=== PATIENT | male | born 1965 | race Caucasian/White ===

== ENCOUNTER 2017-10-10 16:02 | Emergency (ER) | payer OTHER ==
[2017-10-10 16:07] VITALS: BP 144/82; PULSE 123; BMI 28.3
[2017-10-10 16:33] VITALS: TEMP 98.3
[2017-10-10] MEDS ORDERED: IBUPROFEN 600 MG TABLET (FP) PO ONE ×2 (17:05→17:08)
--- NOTE | 2017-10-10 17:26 | PDOC ---
History of Present Illness - General Chief Complaint: Respiratory Stated Complaint: COLD SYMPTOMS Time Seen by Provider: 10/10/17 16:51 History Source: Patient Exam Limitations: No Limitations - History of Present Illness Initial Comments: 10/10/17 17:19 52-year-old male presents to the emergency room for complaints of continual cough and intermittent shortness of breath for the past 2 weeks with chills. Patient denies hemoptysis, night sweats, weight loss, calf pain, recent travel, lower extremity edema, smoking history, or recent illness. Timing/Duration: reports: other (2 weeks) Severity: reports: moderate Associated Symptoms: reports: cough, nasal congestion, shortness of breath, sore throat Past History - Travel Traveled outside of the country in the last 30 days: No - Past Medical History Allergies/Adverse Reactions: Allergies Allergy/AdvReac Type Severity Reaction Status Date / Time No Known Allergies Allergy Verified 10/10/17 16:07 Home Medications: Ambulatory Orders Quetiapine Fumarate "Xr" [Seroquel XR] 400 mg PO HS 07/08/14 Albuterol 0.083% Nebulizer Bhumika [Ventolin 0.083% Nebulizer Soln -] 1 neb NEB QID 05/18/15 Albuterol Sulfate Inhaler - [Ventolin HFA Inhaler -] 1 - 2 inh PO QID PRN Cetirizine HCl [Zyrtec -] 10 mg PO DAILY #30 tablet 05/30/15 Salmeterol/Fluticasone [Advair 100Mcg/50Mcg -] 1 inh IH DAILY #1 inh 05/30/15 Anemia: No Asthma: Yes Cancer: No Cardiac Disorders: No CVA: No COPD: No CHF: No Dementia: No Diabetes: No GI Disorders: No Disorders: No HTN: No Hypercholesterolemia: No Kidney Stones: No Liver Disease: No Psychiatric Problems: Yes (BIPOLAR, ANXIETY.) Seizures: No Thyroid Disease: No - Surgical History Abdominal Surgery: Yes Appendectomy: Yes Cardiac Surgery: No Cholecystectomy: No Lung Surgery: No Neurologic Surgery: No Orthopedic Surgery: No - Reproductive History Testicular Surgery: No - Immunization History Immunization Up to Date: Yes - Suicide/Smoking/Psychosocial Hx Smoking Status: No Smoking History: Never smoked Have you smoked in the past 12 months: No Number of Cigarettes Smoked Daily: 0 If you are a former smoker, when did you quit?: 2005 Cigars Per Day: 0 'Breaking Loose' booklet given: 05/02/14 Hx Alcohol Use: No Drug/Substance Use Hx: No Substance Use Type: None Hx Substance Use Treatment: Yes (IOP) Patient Lives Alone: No Lives with/in: spouse/SO Respiratory Specific PMHX - Complaint Specific PMHX TB (Tuberculosis): No Review of Systems - Review of Systems Able to Perform ROS?: Yes Constitutional: No: Symptoms Reported HEENTM: No: Symptoms Reported Respiratory: Yes: Cough, Shortness of Breath, Productive cough Cardiac (ROS): No: Symptoms Reported ABD/GI: No: Symptoms Reported : No: Symptoms Reported Musculoskeletal: No: Symptoms Reported Integumentary: No: Symptoms Reported Neurological: No: Symptoms reported *Physical Exam - Vital Signs Last Vital Signs Temp Pulse Resp BP Pulse Ox 98.3 F 123 H 20 144/82 99 10/10/17 16:04 10/10/17 16:04 10/10/17 16:04 10/10/17 16:04 10/10/17 16:04 - Physical Exam General Appearance: Yes: Nourished, Appropriately Dressed. No: Apparent Distress HEENT: positive: EOMI, SERGIO. negative: Pale Conjunctivae Neck: positive: Supple Respiratory/Chest: positive: Lungs Clear, Normal Breath Sounds. negative: Respiratory Distress, Accessory Muscle Use, Rhonchi, Stridor, Wheezing Cardiovascular: positive: Regular Rhythm, Tachycardia. negative: Murmur Gastrointestinal/Abdominal: positive: Soft. negative: Tenderness Extremity: positive: Normal Capillary Refill. negative: Calf Tenderness Integumentary: positive: Normal Color, Warm, Moist Neurologic: positive: Motor Strength 5/5 (ambulatory) ED Treatment Course - RADIOLOGY Radiology Studies Ordered: Category Date Time Status CHEST PA & LAT [RAD] Stat Radiology 10/10/17 17:05 Ordered - Medications Given in the ED: ED Medications Discontinued Medications Generic Name Dose Route Start Last Admin Trade Name Freq PRN Reason Stop Dose Admin Ibuprofen 600 mg 10/10/17 17:05 10/10/17 17:09 Motrin - PO 10/10/17 17:06 600 mg ONCE ONE Administration Medical Decision Making - Medical Decision Making 10/10/17 17:27 Patient with URI symptoms 10 days. Patient exam had no acute findings except for tachycardia. Patient or temperature 98.7. Patient ordered for Motrin and chest x-ray to rule out pneumonia/bronchitis. 10/10/17 18:08 Chest xray - for pneumonia. will treat with azithromycin for bronchitis. *DC/Admit/Observation/Transfer Diagnosis at time of Disposition: Bronchitis - Discharge Dispostion Disposition: HOME Condition at time of disposition: Good - Referrals - Patient Instructions Printed Discharge Instructions: DI for Acute Bronchitis Additional Instructions: Please take azithromycin as prescribed and stay well hydrated. - Post Discharge Activity
== END 2017-10-10 18:13 | disposition home or self-care (01) ==
LOC: JERFT 16:02
DX: J20.9 Acute bronchitis, unspecified (principal); F31.9 Bipolar disorder, unspecified; F41.9 Anxiety disorder, unspecified
CPT/HCPCS: 71046-TC; 99281-25

== ENCOUNTER 2020-04-14 18:13 | Emergency (ER) | payer OTHER ==
[2020-04-14 18:20] VITALS: BP 122/85; PULSE 93; TEMP 98.3; BMI 29.7
[2020-04-14] MEDS ORDERED: predniSONE 20 MG TABLET (UD) PO ONE (19:15)
[2020-04-14] MEDS ORDERED: predniSONE 20 MG TABLET (UD) ONE (19:18)
--- NOTE | 2020-04-14 19:28 | PDOC ---
History of Present Illness - General Chief Complaint: Rash Stated Complaint: ALLERGIC REACTION Time Seen by Provider: 04/14/20 18:30 History Source: Patient Exam Limitations: No Limitations - History of Present Illness Initial Comments: 04/14/20 19:23 54-year-old male history of hyperlipidemia, asthma, eczema complaining of intermittent wheezing, shortness of breath, cough and worsening rash to bilateral feet and upper arms over the past 3 days. Patient started a new job 3 days ago, working inside a very warm building which has no air conditioning. He has been using albuterol nebulizer at home which has helped his symptoms. Denies fever, chills, chest pain, abdominal pain, nausea, vomiting, diarrhea, back pain, known sick contacts or recent travel. He has been taking cool showers and applying hydrocortisone 1% cream which has been slightly helping. Patient last used albuterol nebulizer approximately 4 hours ago. Scheduled a follow-up appointment with PMD for Thursday, April 16, 2020. ROS: as above PE: GENERAL: well-appearing, NAD HEAD: NCAT EYES: Pupils equal, round and reactive to light, sclera anicteric, conjunctiva clear ENT: pharynx: no erythema, no exudate, uvula midline NECK: supple CHEST: nontender RESP: clear, no w/r/r CARDIO: rrr, no m/g/r ABD: +BS, soft, nontender, non distended BACK: no midline spinal ttp, no CVAT EXTREMITIES: Normal range of motion, no edema NEUROLOGICAL: Normal speech, normal gait SKIN: Papular, scaly, excoriated rash noted to bilateral dorsum of feet, and upper extremities Is this a multiple visit Asthma Patient?: No Past History - Medical History Allergies/Adverse Reactions: Allergies Allergy/AdvReac Type Severity Reaction Status Date / Time No Known Allergies Allergy Verified 04/14/20 18:20 Home Medications: Ambulatory Orders Quetiapine Fumarate "Xr" [Seroquel XR] 400 mg PO HS 07/08/14 Albuterol Sulfate Inhaler - [Ventolin HFA Inhaler -] 1 - 2 inh PO QID PRN 05/18/15 Cetirizine HCl [Zyrtec -] 10 mg PO DAILY #30 tablet 05/30/15 Salmeterol/Fluticasone [Advair 100Mcg/50Mcg -] 1 inh IH DAILY #1 inh 05/30/15 Albuterol 0.083% Nebulizer Bhumika [Ventolin 0.083% Nebulizer Soln -] 1 neb NEB QID PRN #1 box 10/10/17 Azithromycin [Zithromax Tri-Steven (3 DAYS) -] 500 mg PO DAILY #3 tablet 10/10/17 Azithromycin [Zithromax Tri-Steven (3 DAYS) -] 500 mg PO DAILY #3 tablet 10/10/17 Hydrocortisone 2.5% Topical Cr [Anusol-Hc -] 1 applic RC BID #1 tube 04/14/20 Prednisone [Prednisone 50 MG TABLETS] 50 mg PO ONCE #4 tablet 04/14/20 Anemia: No Asthma: Yes Cancer: No Cardiac Disorders: No CVA: No COPD: No CHF: No Dementia: No Diabetes: No GI Disorders: No Disorders: No HTN: No Hypercholesterolemia: No Kidney Stones: No Liver Disease: No Psychiatric Problems: Yes (BIPOLAR, ANXIETY.) Seizures: No Thyroid Disease: No Other medical history: excema - Surgical History Abdominal Surgery: Yes Appendectomy: Yes Cardiac Surgery: No Cholecystectomy: No Lung Surgery: No Neurologic Surgery: No Orthopedic Surgery: No - Reproductive History Testicular Surgery: No - Immunization History Immunization Up to Date: Yes - Psycho-Social/Smoking History Smoking Status: No Smoking History: Never smoked Have you smoked in the past 12 months: No Number of Cigarettes Smoked Daily: 0 If you are a former smoker, when did you quit?: 2005 Cigars Per Day: 0 'Breaking Loose' booklet given: 05/02/14 - Substance Abuse Hx (Audit-C & DAST Scrn) How often the patient has a drink containing alcohol: Never Score: In Men: 4 or > Positive; In Women: 3 or > Positive: 0 Screen Result (Pos requires Nsg. Audit-10AR): Negative *Physical Exam - Vital Signs Last Vital Signs Temp Pulse Resp BP Pulse Ox 98.3 F 93 H 18 122/85 97 04/14/20 18:17 04/14/20 18:17 04/14/20 18:17 04/14/20 18:17 04/14/20 18:17 ED Treatment Course - Medications Given in the ED: ED Medications Discontinued Medications Generic Name Dose Route Start Last Admin Trade Name Freq PRN Reason Stop Dose Admin Diphenhydramine HCl 50 mg 04/14/20 19:15 04/14/20 19:22 Benadryl Injection - IM 04/14/20 19:16 50 mg ONCE ONE Administration Prednisone 60 mg 04/14/20 19:15 04/14/20 19:22 Deltasone - PO 04/14/20 19:16 60 mg ONCE ONE Administration Medical Decision Making - Medical Decision Making 04/14/20 19:26 54-year-old male history of hyperlipidemia, asthma, eczema complaining of intermittent wheezing, shortness of breath, cough and worsening rash to bilateral feet and upper arms over the past 3 days. Patient started a new job 3 days ago, working inside a very warm building which has no air conditioning. He has been using albuterol nebulizer at home which has helped his symptoms. Denies fever, chills, chest pain, abdominal pain, nausea, vomiting, diarrhea, back pain, known sick contacts or recent travel. He has been taking cool showers and applying hydrocortisone 1% cream which has been slightly helping. Patient last used albuterol nebulizer approximately 4 hours ago. Scheduled a follow-up appointment with PMD for Thursday, April 16, 2020. Benadryl 25 mg IM Prednisone 60 mg p.o. x1 dose Patient's will drive him home Stable for discharge Discharge - Discharge Information Problems reviewed: Yes Clinical Impression/Diagnosis: Rash Condition: Stable Disposition: HOME - Admission No - Additional Discharge Information Prescriptions: Hydrocortisone 2.5% Topical Cr [Anusol-Hc -] 1 applic RC BID #1 tube Prednisone [Prednisone 50 MG TABLETS] 50 mg PO ONCE #4 tablet - Follow up/Referral Referrals: Chema Shore II, DO [Primary Care Provider] - - Patient Discharge Instructions Additional Instructions: Keep your scheduled appointment with your doctor for April 16 Take prednisone as directed Use hydrocortisone cream 2.5% as directed Return to ED if symptoms worsen - Post Discharge Activity
== END 2020-04-14 19:32 | disposition home or self-care (01) ==
LOC: JERFT 18:13
PROC: 3E023GC Introduction of Other Therapeutic Substance into Muscle, Percutaneous Approach (ICD-10-PCS; principal; 2020-04-14)
DX: R21 Rash and other nonspecific skin eruption (principal)
CPT/HCPCS: 99284-25

== ENCOUNTER 2020-06-06 18:50 | Emergency (ER) | payer OTHER ==
[2020-06-06 18:56] VITALS: BP 128/88; PULSE 106; TEMP 98.1; BMI 29.6
--- OUTSIDE RECORDS SUMMARY | 2020-06-06 19:02 | XMS ---
:1965 Author Organization [facility] Support Name Relationship Address Phone [employer] Unavailable [address] [place] [address] [employer] COLON SISTER [address] [facility] [address] [place] [address] ANNY MANCIA Unavailable Unavailable Unavailable Re-disclosure Warning The records that you are about to access may contain information from federally- assisted alcohol or drug abuse programs. If such information is present, then the following federally mandated warning applies: This information has been disclosed to you from records protected by federal confidentiality rules (42 CFR part 2). The federal rules prohibit you from making any further disclosure of this information unless further disclosure is expressly permitted by the written consent of the person to whom it pertains or as otherwise permitted by 42 CFR part 2. A general authorization for the release of medical or other information is NOT sufficient for this purpose. The Federal rules restrict any use of the information to criminally investigate or prosecute any alcohol or drug abuse patient.The records that you are about to access may contain highly sensitive health information, the redisclosure of which is protected by Article 27-F of the [facility] Public Health law. If you continue you may haveaccess to information: Regarding HIV / AIDS; Provided by facilities licensed or operated by the [facility] Office of Mental Health; or Provided by the [facility] Office for People With Developmental Disabilities. If such information is present, then the following [facility] mandated warning applies: This information has been disclosed to you from confidential records which are protected by state law. State law prohibits you from making any further disclosure of this information without the specific written consent of the person to whom it pertains, or as otherwise permitted by law. Any unauthorized further disclosure in violation of state law may result in a fine or long term sentence or both. A general authorization for the release of medical or other information is NOT sufficient authorization for further disclosure. Allergies and Adverse Reactions Type Description Substance Reaction Status Data Source(s ) No Known No Known Allergies No Known eCW3 ( [place] [facility]) No Known No Known Allergies No Known eCW3 ( [place] [facility]) No Known No Known Allergies No Known eCW3 ( [place] [facility]erg[facility]) No Known No Known Allergies No known eCW3 ( [place] Allergies allergies [facility]) Encounters Encounter Providers Location Date Indications Data Source(s ) [facility] 05/19/2019 eCW3 ([facility] A28 12:00:00 AM Health Care) EDT - 05/19/2019 12:00:00 AM EDT [facility] 04/20/2019 eCW3 ([facility] A28 12:00:00 AM Health Care) EDT - 04/20/2019 12:00:00 AM EDT [facility] 12/10/2018 eCW3 ([facility] A28 12:00:00 AM Health Care) EDT - 12/10/2018 12:00:00 AM EDT [facility] 11/15/2018 eCW3 ([facility] A28 12:00:00 AM Health Care) EST - 11/15/2018 12:00:00 AM EST Medications Medication Brand Start Product Dose Route Administrative Pharmacy [facility] Indications Reaction Description Data Name Date Form Instructions Instructions Source(s) montelukast Eric .0 active Montelu kast eCW3 10 MG Oral ukast 2020 {tabl Sodium 10 MG ([facility] Tablet Sodium 12:00: et} [place] Montelukast 10 MG 00 AM Health Sodium 10 EDT Care) MG montelukast Eric .0 active Montelu kast eCW3 10 MG Oral ukast 2020 {tabl Sodium 10 MG ([facility] Tablet Sodium 12:00: et} [place] Montelukast 10 MG 00 AM Health Sodium 10 EDT Care) MG Cimetidine Cimeti .0 active Cimetidi ne eCW3 200 MG Oral dine 2019 {tabl 200 MG ([place] Tablet 200 MG 12:00: et_as [place] 00 AM _[facility] Health EST ed} Care) Cimetidine Cimeti .0 active Cimetidi ne eCW3 200 MG Oral dine 2019 {tabl 200 MG ([place] Tablet 200 MG 12:00: et_as [place] 00 AM _need Health EST ed} Care) Hydrochloro Lisino .0 active Lisinop ril-H eCW3 thiazide pril-H 2019 {tabl ydrochloroth ([facility] 12.5 MG / ydroch 12:00: et} iazide [place] Lisinopril loroth 00 AM 10-12.5 MG Health 10 MG Oral iazide EST Care) Tablet 10-12. Lisinopril- 5 MG Hydrochloro thiazide 10-12.5 MG Hydrochloro Lisino .0 active Lisinop ril-H eCW3 thiazide pril-H 2019 {tabl ydrochloroth ([facility] 12.5 MG / ydroch 12:00: et} iazide [place] Lisinopril loroth 00 AM 10-12.5 MG Health 10 MG Oral iazide EST Care) Tablet 10-12. Lisinopril- 5 MG Hydrochloro thiazide 10-12.5 MG Fluticasone UNK .0 active Fluticaso ne eCW3 Propionate 2018 {puff Propionate ([place] HFA 44 12:00: } HFA 44 [place] MCG/ACT 00 AM MCG/ACT Health EST Care) Azelastine Azelas 2.0 active Azelasti ne eCW3 HCl 0.1 % parvin 2018 {puff HCl 0.1 % ([place] HCl 12:00: s_in_ [place] 0.1 % 00 AM each_ Health EDT nostr Care) il} levocetiriz Levoce .0 active Levocet irizi eCW3 ine tirizi 2018 {tabl ne ([place] dihydrochlo ne 12:00: et_in Dihydrochl or [place] ride 5 MG Dihydr 00 AM _the_ nany 5 MG He alth Oral Tablet ochlor EDT eveni Care) Levocetiriz nany 5 ng} ine MG Dihydrochlo ride 5 MG levocetiriz Levoce .0 active Levocet irizi eCW3 ine tirizi 2019 {tabl ne ([place] dihydrochlo ne 12:00: et_in Dihydrochl or [place] ride 5 MG Dihydr 00 AM _the_ nany 5 MG He alth Oral Tablet ochlor EDT eveni Care) Levocetiriz nany 5 ng} ine MG Dihydrochlo ride 5 MG levocetiriz Levoce .0 active Levocet irizi eCW3 ine tirizi 2018 {tabl ne ([place] dihydrochlo ne 12:00: et_in Dihydrochl or [place] ride 5 MG Dihydr 00 AM _the_ nany 5 MG He alth Oral Tablet ochlor EDT eveni Care) Levocetiriz nany 5 ng} ine MG Dihydrochlo ride 5 MG Azelastine Azelas .0 active Azelasti ne eCW3 HCl 0.1 % parvin 2018 {puff HCl 0.1 % ([place] HCl 12:00: s_in_ [place] 0.1 % 00 AM each_ Health EDT nostr Care) il} Azelastine Azelas .0 active Azelasti ne eCW3 HCl 0.1 % parvin 2018 {puff HCl 0.1 % ([place] HCl 12:00: s_in_ [place] 0.1 % 00 AM each_ Health EDT nostr Care) il} Prednisone Predni .0 active PredniSO NE eCW3 50 MG Oral SONE 2018 {tabl 50 mg ([place] Tablet 50 mg 12:00: et} [place] PredniSONE 00 AM Health 50 mg EDT Care) Aspir-81 81 UNK .0 active Aspir-81 81 eCW3 MG 2018 {tabl MG ([place] 12:00: et} [place] 00 AM Health EST Care) Aspir-81 81 UNK .0 active Aspir-81 81 eCW3 MG 2018 {tabl MG ([place] 12:00: et} [place] 00 AM Health EST Care) Adult Mask Adult 07/15/ active Adult Mas k - eCW3 - Mask - 2018 ([place] 12:00: [place] 00 AM Health EDT Care) montelukast Singul .0 active Singula ir 10 eCW3 10 MG Oral air 10 2017 {tabl MG ([place] Tablet MG 12:00: et} [place] [facility]] [facility] Adult Mask Adult 07/15/ active Adult Mary Ann k - eCW3 - Mask - 2017 ([facility] 12:00: [place] 00 AM Health EDT Care) [facility] .0 active Singula ir 10 eCW3 10 MG Oral air 10 2017 {tabl MG ([place] Tablet MG 12:00: et} [place] [Singulair] 00 [facility] 10 MG [facility] .0 active Singula ir 10 eCW3 10 MG Oral air 10 2017 {tabl MG ([place] Tablet MG 12:00: et} [place] [Singulair] 00 [facility] 10 MG 200 ACTUAT Ventol .0 active Ventolin HFA eCW3 Albuterol in HFA 2017 {puff 108 (90 ([place] 0.09 108 12:00: s_as_ Base) [place] MG/ACTUAT (90 00 AM neede MCG/ACT Healt h Metered Base) EDT d} Care) Dose MCG/AC Inhaler T [Ventolin] Ventolin HFA 108 (90 Base) MCG/ACT Adult Mask Adult 07/15/ active Adult Mary Ann k - eCW3 - Mask - 2017 ([place] 12:00: [place] 00 AM Health EDT Care) [facility] .0 active Singula ir 10 eCW3 10 MG Oral air 10 2017 {tabl MG ([place] Tablet MG 12:00: et} [place] [Singulair] 00 AM Health Singula EDT Care) 10 MG 200 ACTUAT Ventol 2.0 active Ventolin HFA eCW3 Albuterol in HFA 2017 {puff 108 (90 ([place] 0.09 108 12:00: s_as_ Base) [place] MG/ACTUAT (90 00 AM neede MCG/ACT Healt h Metered Base) EDT d} Care) Dose MCG/AC Inhaler T [Ventolin] Ventolin HFA 108 (90 Base) MCG/ACT 200 ACTUAT Ventol .0 active Ventolin HFA eCW3 Albuterol in HFA 2018 {puff 108 (90 ([place] 0.09 108 12:00: s_as_ Base) [place] MG/ACTUAT (90 00 AM neede MCG/ACT Healt h Metered Base) EDT d} Care) Dose MCG/AC Inhaler T [Ventolin] Ventolin HFA 108 (90 Base) MCG/ACT Nebulizer Nebuli 07/15/ active Nebulizer eCW3 Mask zer 2018 Mask ([facility] - Mask 12:00: Pediatric - [place] Pediat 00 AM Health [facility] - EDT Care) 200 ACTUAT Ventol 07/15/ 2.0 active Ventolin HFA eCW3 Albuterol in HFA 2018 {puff 108 (90 ([place] 0.09 108 12:00: s_as_ Base) [place] MG/ACTUAT (90 00 AM neede MCG/ACT Healt h Metered Base) EDT d} Care) Dose MCG/AC Inhaler T [Ventolin] Ventolin HFA 108 (90 Base) MCG/ACT Adult Mask Adult 07/15/ active Adult Mas k - eCW3 - Mask - 2018 ([place] 12:00: [place] 00 AM [facility] EDT Care) Loratadine Clarit 1.0 active Claritin 10 eCW3 10 MG Oral in 2017 {tabl MG ([place] Tablet MG 12:00: et} [place] [Claritin] 00 AM [place] [address] EDT [facility]) MG Loratadine Clarit 1.0 active Claritin 10 eCW3 10 MG Oral in 2017 {tabl MG ([place] Tablet MG 12:00: et} [place] [Claritin] 00 AM [place] [address] EDT [facility]) MG 200 ACTUAT ProAir 2.0 active ProAir H FA eCW3 Albuterol HFA 2018 {puff 108 (90 ([place] 0.09 108 12:00: s_as_ Base) [place] MG/ACTUAT (90 00 AM neede MCG/ACT Healt h Metered Base) EDT d} Care) Dose MCG/AC Inhaler T [ProAir] ProAir HFA 108 (90 Base) MCG/ACT 200 ACTUAT ProAir 2.0 active ProAir H FA eCW3 Albuterol HFA 2018 {puff 108 (90 ([place] 0.09 108 12:00: s_as_ Base) [place] MG/ACTUAT (90 00 AM neede MCG/ACT Healt h Metered Base) EDT d} Care) Dose MCG/AC Inhaler T [ProAir] ProAir HFA 108 (90 Base) MCG/ACT 200 ACTUAT ProAir 2.0 active ProAir H FA eCW3 Albuterol HFA 2017 {puff 108 (90 ([place] 0.09 108 12:00: s_as_ Base) [place] MG/ACTUAT (90 00 AM neede MCG/ACT Healt h Metered Base) EDT d} Care) Dose MCG/AC Inhaler T [ProAir] ProAir HFA 108 (90 Base) MCG/ACT Meclizine Mecliz .0 suspend Meclizin e eCW3 Hydrochlori ine 2017 {tabl ed HCl 25 MG ([facility] de 25 MG HCl 25 12:00: et_as [place] Chewable MG 00 AM _need Health Tablet EDT ed} Care) Meclizine HCl 25 MG Flonase Flonas .0 active Flonase eCW 3 Allergy e 2018 {spra Allergy ([facility] Relief 50 Allerg 12:00: y_in_ Relief 50 [place] MCG/ACT y 00 AM each_ MCG/ACT Health Relief EDT nostr Care) 50 il} MCG/AC T 200 ACTUAT ProAir 2.0 active ProAir H FA eCW3 Albuterol HFA 2017 {puff 108 (90 ([place] 0.09 108 12:00: s_as_ Base) [place] MG/ACTUAT (90 00 AM neede MCG/ACT Healt h Metered Base) EDT d} Care) Dose MCG/AC Inhaler T [ProAir] ProAir HFA 108 (90 Base) MCG/ACT Flonase Flonas .0 active Flonase eCW 3 Allergy e 2018 {spra Allergy ([facility] Relief 50 Allerg 12:00: y_in_ Relief 50 [place] MCG/ACT y 00 AM each_ MCG/ACT Health Relief EDT nostr Care) 50 il} MCG/AC T Loratadine Clarit .0 active Claritin 10 eCW3 10 MG Oral in 2017 {tabl MG ([place] Tablet MG 12:00: et} [place] [Claritin] 00 AM Health Claritin 10 EDT Care) MG Flonase Flonas .0 active Flonase eCW 3 Allergy e 2018 {spra Allergy ([facility] Relief 50 Allerg 12:00: y_in_ Relief 50 [place] MCG/ACT y 00 AM each_ MCG/ACT Health Relief EDT nostr Care) 50 il} MCG/AC T Meclizine Mecliz .0 active Meclizine eCW3 Hydrochlori ine 2018 {tabl HCl 25 MG ([facility] de 25 MG HCl 25 12:00: et_as [place] Chewable MG 00 AM _need Health Tablet EDT ed} Care) Meclizine HCl 25 MG Flonase Flonas .0 active Flonase eCW 3 Allergy e 2018 {spra Allergy ([facility] Relief 50 Allerg 12:00: y_in_ Relief 50 [place] MCG/ACT y 00 AM each_ MCG/ACT Health Relief EDT nostr Care) 50 il} MCG/AC T Loratadine Clarit .0 active Claritin 10 eCW3 10 MG Oral in 2017 {tabl MG ([place] Tablet MG 12:00: et} [place] [Claritin] 00 AM Health Claritin 10 EDT Care) MG Albuterol Albute 3.0 active Albuterol e CW3 0.83 MG/ML rol {ml_a Sulfate (2.5 ([facility] Inhalant Sulfat s_nee MG/3ML) [place] Solution e (2.5 ded} 0.083% Health Albuterol MG/3ML Care) Sulfate ) (2.5 0.083% MG/3ML) 0.083% Albuterol Albute 3.0 active Albuterol e CW3 0.83 MG/ML rol {ml_a Sulfate (2.5 ([facility] Inhalant Sulfat s_nee MG/3ML) [place] Solution e (2.5 ded} 0.083% Health Albuterol MG/3ML Care) Sulfate ) (2.5 0.083% MG/3ML) 0.083% Albuterol Albute 3.0 active Albuterol e CW3 0.83 MG/ML rol {ml_a Sulfate (2.5 ([facility] Inhalant Sulfat s_nee MG/3ML) [place] Solution e (2.5 ded} 0.083% Health Albuterol MG/3ML Care) Sulfate ) (2.5 0.083% MG/3ML) 0.083% Albuterol Albute 3.0 active Albuterol e CW3 0.83 MG/ML rol {ml_a Sulfate (2.5 ([facility] Inhalant Sulfat s_nee MG/3ML) [place] Solution e (2.5 ded} 0.083% Health Albuterol MG/3ML Care) Sulfate ) (2.5 0.083% MG/3ML) 0.083% Insurance Providers Payer name Policy type Policy ID Covered Covered green party's Policy P gina / Coverage green party ID relationship to Pimentel Inf ormation type pimentel [facility] [id number] SP [id number] MEDICAID [facility] MEDICAID [id number] SP [id number] Problems, Conditions, and Diagnoses Code Display Name Description Problem Type Effective Dates Data Source(s) K21.9 GERD without GERD without Problem 10/27/2019 eCW3 ([place] esophagitis esophagitis 12:00:[address] [facility] Care) I10 Essential Essential Problem 10/20/2019 eCW3 ([place] hypertension hypertension 12:00:[address] [facility]) E78.5 Dyslipidemia Dyslipidemia Problem 10/21/2018 eCW3 ([place] 12:00:00 AM [facility] Care) E78.5 Dyslipidemia Dyslipidemia Problem 10/21/2018 eCW3 ([place] 12:00:00 AM [facility] Care) F51.01 Primary insomnia Primary insomnia Problem 02/08/2018 eC W3 ([place] 12:00:00 AM [facility] Care) J45.20 Asthma, mild Asthma, mild Problem 02/08/2018 eCW3 ([place] intermittent[facility], [facility] ) F51.01 Primary insomnia Primary insomnia Problem 02/08/2018 eC W3 ([facility] 12:00:00 AM [facility] Care) J45.20 Asthma, mild Asthma, mild Problem 02/08/2018 eCW3 ([facility] intermittent, intermittent, 12:00:00 AM EDT [facility] well-controlled well-controlled Care ) Surgeries/Procedures Procedure Description Date Indications Data Source(s) NEBULIZATION TX. 12/10/2018 12:00:00 eCW3 ([facility]) Social History Code Duration Value Status Description Data Source(s ) Smoking 12/28/2019 12:00:00 Never Smoker completed Never Smoker e CW3 ([facility]) Smoking 12/28/2019 12:00:00 Never Smoker completed Never Smoker e CW3 ([facility]) Smoking 07/20/2019 12:00:00 Never Smoker completed Never Smoker e CW3 ([facility]) Smoking 12/10/2018 12:00:00 Never Smoker completed Never Smoker e CW3 ([facility]) Never Smoker completed Never Smoker eCW3 ([facility]) Never Smoker completed Never Smoker eCW3 ([facility]) Never Smoker completed Never Smoker eCW3 ([facility]) Never Smoker completed Never Smoker eCW3 ([facility]) Vital Signs ID Date Data Source UNK Name Value Range Interpretation Code Description Data Source(s) Diastolic blood 97 mm[Hg] 97 mm[Hg] eCW3 ([facility]) Systolic blood 148 mm[Hg] 148 mm[Hg] eCW3 ([facility]) Body temperature 98.0 [degF] 98.0 [degF] eCW3 ( [facility]) Body mass index 32.33 kg/m2 32.33 kg/m2 eCW3 ([place] [facility] (BMI) [Ratio] [facility]) Body weight 184 [lb_av] 184 [lb_av] eCW3 ([facility]) Body height 63.25 [in_i] 63.25 [in_i] eCW3 ([facility]) Diastolic blood 81 mm[Hg] 81 mm[Hg] eCW3 ([facility]) Systolic blood 122 mm[Hg] 122 mm[Hg] eCW3 ([facility]) Body temperature 98.0 [degF] 98.0 [degF] eCW3 ( [facility]) Heart rate 18 /min 18 /min eCW3 ([facility]) Body mass index 31.45 kg/m2 31.45 kg/m2 eCW3 ([place] [facility] (BMI) [Ratio] [facility]) Body weight 179 [lb_av] 179 [lb_av] eCW3 ([facility]) Body height 63.25 [in_i] 63.25 [in_i] eCW3 ([facility]) Diastolic blood 80 mm[Hg] 80 mm[Hg] eCW3 ([facility]) Systolic blood 128 mm[Hg] 128 mm[Hg] eCW3 ([facility]) Body temperature 98.4 [degF] 98.4 [degF] eCW3 ( [facility]) Heart rate 20 /min 20 /min eCW3 ([facility]) Body mass index 32.16 kg/m2 32.16 kg/m2 eCW3 ([place] [facility] (BMI) [Ratio] [facility]) Body weight 183 [lb_av] 183 [lb_av] eCW3 ([facility]) Body height 63.25 [in_i] 63.25 [in_i] eCW3 ([facility]) Diastolic blood 82 mm[Hg] 82 mm[Hg] eCW3 ([facility]) Systolic blood 125 mm[Hg] 125 mm[Hg] eCW3 ([facility]) Body temperature 97.4 [degF] 97.4 [degF] eCW3 ( [facility]) Heart rate 18 /min 18 /min eCW3 ([facility]) Body mass index 32.40 kg/m2 32.40 kg/m2 eCW3 ([place] [facility] (BMI) [Ratio] [facility]) Body weight 184.4 184.4 [lb_av] eCW3 ([facility] [lb_av] [facility]) Body height 63.25 [in_i] 63.25 [in_i] eCW3 ([facility]) Patient Treatment Plan of Care Planned Activity Planned Date Details Description Data Source (s) montelukast 10 MG Oral Tablet 12/28/2019 eCW3 ([place] 12:00:00 AM [facility]) montelukast 10 MG Oral Tablet 12/28/2019 eCW3 ([place] 12:00:00 AM [facility]) Cimetidine 200 MG Oral Tablet 10/27/2019 eCW3 ([place] 12:00:00 AM [facility]) Cimetidine 200 MG Oral Tablet 10/27/2019 eCW3 ([facility] 12:00:00 AM [facility]) Hydrochlorothiazide 12.5 MG / 10/20/2019 eCW3 ([facility] Lisinopril 10 MG Oral Tablet 12:00:00 AM [facility]) Hydrochlorothiazide 12.5 MG / 10/20/2019 eCW3 ([facility] Lisinopril 10 MG Oral Tablet 12:00:00 AM [facility]) Fluticasone Propionate HFA 44 07/20/2019 eCW3 ([facility] MCG/ACT 12:00:00 AM [facility]) levocetirizine 05/19/2019 eCW3 ([facility] dihydrochloride 5 MG Oral 12:00:00 AM [facility]) Tablet Azelastine HCl 0.1 % 05/19/2019 eCW3 ([place] 12:00:00 AM [facility]) levocetirizine 05/19/2019 eCW3 ([facility] dihydrochloride 5 MG Oral 12:00:00 AM [facility]) Tablet Azelastine HCl 0.1 % 05/19/2019 eCW3 ([facility] [place] 12:00:00 AM [facility]) Prednisone 50 MG Oral Tablet 12/10/2018 eCW3 ([place] 12:00:00 AM [facility]) montelukast 10 MG Oral Tablet 07/15/2018 eCW3 ([facility] [[facility] 12:00:00 AM [facility]) montelukast 10 MG Oral Tablet 07/15/2018 eCW3 [facility] Health Care) Adult Mask - 07/15/2018 eCW3 ([facility] sj 12:00:00 AM [facility]) montelukast 10 MG Oral Tablet 07/15/2018 eCW3 ([facility] [place] [Singulair] 12:00:00 AM [facility]) Loratadine 10 MG Oral Tablet 02/08/2018 eCW3 ([employer] [Claritin] 12:00:00 AM [facility]) Loratadine 10 MG Oral Tablet 02/08/2018 eCW3 ([employer] [Claritin] 12:00:00 AM [facility]) 200 ACTUAT Albuterol 0.09 02/08/2018 eC W3 ([employer] MG/ACTUAT Metered Dose 12:00:00 AM [facility]) Inhaler [ProAir] Loratadine 10 MG Oral Tablet 02/08/2018 eCW3 ([employer] [Claritin] 12:00:00 AM [facility]) Flonase Allergy Relief 50 02/08/2018 eC W3 ([employer] MCG/ACT 12:00:00 AM [facility])
[2020-06-06] MEDS ORDERED: predniSONE 20 MG TABLET (UD) PO ONE (19:15)
[2020-06-06] MEDS ORDERED: predniSONE 10 MG TABLET (UD) ONE (19:27)
[2020-06-06] MEDS ORDERED: predniSONE 20 MG TABLET (UD) ONE (19:27)
--- NOTE | 2020-06-06 19:54 | PDOC ---
History of Present Illness - General Chief Complaint: Rash Stated Complaint: RASH Time Seen by Provider: 06/06/20 18:59 History Source: Patient Exam Limitations: No Limitations - History of Present Illness Initial Comments: 06/06/20 19:50 54-year-old male history of asthma and eczema presents complaining of pruritic rash to upper and lower extremities x1 month worsening over the past month. Itching and rash worsened to bilateral lower extremity. Patient is able to control rash and itching with cold showers. States rash seems to worsen when sweating. Denies fever, chills, shortness of breath, pain, recent travel, insect bites or any other complaint. Patient does not have a client resolution specialist. ROS: as above PE: GENERAL: well-appearing, NAD HEAD: NCAT EYES: Pupils equal, round and reactive to light, sclera anicteric, conjunctiva clear ENT: pharynx: no erythema, no exudate, uvula midline NECK: supple CHEST: nontender RESP: clear, no w/r/r CARDIO: rrr, no m/g/r ABD: +BS, soft, nontender, non distended BACK: no midline spinal ttp, no CVAT EXTREMITIES: Normal range of motion, no edema NEUROLOGICAL: Normal speech, normal gait SKIN: Excoriated rash to upper extremity and lower extremities bilaterally, no surrounding erythema, warmth or tenderness to palpation Is this a multiple visit Asthma Patient?: No Past History - Medical History Allergies/Adverse Reactions: Allergies Allergy/AdvReac Type Severity Reaction Status Date / Time No Known Allergies Allergy Verified 06/06/20 18:51 Home Medications: Ambulatory Orders Quetiapine Fumarate "Xr" [Seroquel XR] 400 mg PO HS 07/08/14 Albuterol Sulfate Inhaler - [Ventolin HFA Inhaler -] 1 - 2 inh PO QID PRN 05/18/15 Cetirizine HCl [Zyrtec -] 10 mg PO DAILY #30 tablet 05/30/15 Salmeterol/Fluticasone [Advair 100Mcg/50Mcg -] 1 inh IH DAILY #1 inh 05/30/15 Albuterol 0.083% Nebulizer Bhumika [Ventolin 0.083% Nebulizer Soln -] 1 neb NEB QID PRN #1 box 10/10/17 Azithromycin [Zithromax Tri-Steven (3 DAYS) -] 500 mg PO DAILY #3 tablet 10/10/17 Azithromycin [Zithromax Tri-Steven (3 DAYS) -] 500 mg PO DAILY #3 tablet 10/10/17 Hydrocortisone 2.5% Lotion [Hytone 2.5% Lotion -] 1 applic TP BID #1 bottle 04/14/20 Prednisone [Prednisone 50 MG TABLETS] 50 mg PO ONCE #4 tablet 04/14/20 Hydrocortisone 1% Cream [Hytone 1% Cream -] 1 applic TP TID #1 tube 06/06/20 Prednisone [Prednisone 50 MG TABLETS] 50 mg PO DAILY 4 Days #4 tablet 06/06/20 Anemia: No Asthma: Yes Cancer: No Cardiac Disorders: No CVA: No COPD: No CHF: No Dementia: No Diabetes: No GI Disorders: No Disorders: No HTN: No Hypercholesterolemia: No Kidney Stones: No Liver Disease: No Psychiatric Problems: Yes (BIPOLAR, ANXIETY.) Seizures: No Thyroid Disease: No - Surgical History Abdominal Surgery: Yes Appendectomy: Yes Cardiac Surgery: No Cholecystectomy: No Lung Surgery: No Neurologic Surgery: No Orthopedic Surgery: No - Reproductive History Testicular Surgery: No - Immunization History Immunization Up to Date: Yes - Psycho-Social/Smoking History Smoking Status: No Smoking History: Never smoked Have you smoked in the past 12 months: No Number of Cigarettes Smoked Daily: 0 If you are a former smoker, when did you quit?: 2005 Cigars Per Day: 0 'Breaking Loose' booklet given: 05/02/14 - Substance Abuse Hx (Audit-C & DAST Scrn) How often the patient has a drink containing alcohol: Never Score: In Men: 4 or > Positive; In Women: 3 or > Positive: 0 Screen Result (Pos requires Nsg. Audit-10AR): Negative In the last yr the pt used illegal drug/Rx for NonMed reason: No Score: Yes response is considered Positive: 0 Screen Result (Positive result requires Nsg. DAST-10): Negative *Physical Exam - Vital Signs Last Vital Signs Temp Pulse Resp BP Pulse Ox 98.1 F 106 H 18 128/88 96 06/06/20 18:51 06/06/20 18:51 06/06/20 18:51 06/06/20 18:51 06/06/20 18:51 ED Treatment Course - Medications Given in the ED: ED Medications Discontinued Medications Generic Name Dose Route Start Last Admin Trade Name Jimena PRN Reason Stop Dose Admin Diphenhydramine HCl 50 mg 06/06/20 19:11 06/06/20 19:31 Benadryl Injection - IM 06/06/20 19:12 50 mg ONCE ONE Administration Prednisone 50 mg 06/06/20 19:15 06/06/20 19:31 Deltasone - PO 06/06/20 19:16 50 mg ONCE ONE Administration Medical Decision Making - Medical Decision Making 06/06/20 19:52 54-year-old male history of asthma and eczema presents complaining of pruritic rash to upper and lower extremities x1 month worsening over the past month. Itching and rash worsened to bilateral lower extremity. Patient is able to control rash and itching with cold showers. States rash seems to worsen when sweating. Denies fever, chills, shortness of breath, pain, recent travel, insect bites or any other complaint. Patient does not have a client resolution specialist. benadryl 50 mg IM prednisone 50 mg rx for hydrocortisone cream TID pred 50 mg daily x 4 days Advised to follow-up with client resolution specialist Discharge - Discharge Information Problems reviewed: Yes Clinical Impression/Diagnosis: Rash Condition: Stable Disposition: HOME - Admission No - Additional Discharge Information Prescriptions: Hydrocortisone 1% Cream [Hytone 1% Cream -] 1 applic TP TID #1 tube Prednisone [Prednisone 50 MG TABLETS] 50 mg PO DAILY 4 Days #4 tablet - Follow up/Referral Referrals: Chema Shore II, DO [Primary Care Provider] - - Patient Discharge Instructions Additional Instructions: Take Benadryl 25 mg every 6 hours as needed for itching Take prednisone 50 mg 1 tablet daily x4 days Apply hydrocortisone cream to area 3 times a day, follow-up with client resolution specialist within 1 week - Post Discharge Activity
== END 2020-06-06 20:02 | disposition home or self-care (01) ==
LOC: JER 18:50 → JERFT 18:50
PROC: 3E0233Z Introduction of Anti-inflammatory into Muscle, Percutaneous Approach (ICD-10-PCS; principal; 2020-06-06)
DX: R21 Rash and other nonspecific skin eruption (principal)
CPT/HCPCS: 99284-25

== ENCOUNTER 2022-01-19 20:31 | Emergency (ER) | payer OTHER ==
[2022-01-19 20:38] VITALS: BP 110/64; PULSE 83; TEMP 97.8; BMI 28.3
== END 2022-01-19 21:26 | disposition home or self-care (01) ==
LOC: JERFT 20:31
DX: H10.13 Acute atopic conjunctivitis, bilateral (principal); J30.9 Allergic rhinitis, unspecified
CPT/HCPCS: 99281-25

== ENCOUNTER 2022-05-03 10:05 | Emergency (ER) | payer OTHER ==
[2022-05-03 10:15] VITALS: BP 97/66; PULSE 83; RESP 18; TEMP 97.8; BMI 28.3
== END 2022-05-03 11:31 | disposition home or self-care (01) ==
LOC: JERFT 10:05 → JER 10:05 → JERFT 11:31
DX: L03.213 Periorbital cellulitis (principal)
CPT/HCPCS: 99283-25

== ENCOUNTER 2022-12-01 20:26 | Emergency (ER) | payer OTHER ==
[2022-12-01 20:44] VITALS: BP 138/96; PULSE 101; RESP 18; TEMP 98; BMI 29.9
[2022-12-01] MEDS ORDERED: ALBUTEROL SO4 2.5/IPRATROPIUM 0.5 INH SOL 3 ML VIAL.NEB. NEB ONE ×2 (20:54→21:16)
[2022-12-01] MEDS ORDERED: predniSONE 20 MG TABLET (UD) PO ONE (22:24)
[2022-12-01] MEDS ORDERED: guaiFENesin/D-METHORPHAN HB 10 ML UNIT-DOSE CUPS PO ONE (22:24)
[2022-12-01] MEDS ORDERED: guaiFENesin/D-METHORPHAN HB 10 ML UNIT-DOSE CUPS ONE (22:25)
[2022-12-01] MEDS ORDERED: predniSONE 20 MG TABLET (UD) ONE (22:26)
== END 2022-12-01 22:49 | disposition home or self-care (01) ==
LOC: JER 20:26
PROC: 3E0F7GC Introduction of Other Therapeutic Substance into Respiratory Tract, Via Natural or Artificial Opening (ICD-10-PCS; principal; 2022-12-01)
DX: J20.9 Acute bronchitis, unspecified (principal); J45.41 Moderate persistent asthma with (acute) exacerbation; Z20.822 Contact with and (suspected) exposure to COVID-19
CPT/HCPCS: 0241U-QW; 71046-TC-FY; 93005; 93010; 99284-25

== ENCOUNTER 2023-01-13 09:01 | Emergency (ER) | payer OTHER ==
[2023-01-13 09:15] VITALS: BP 130/96; PULSE 89; RESP 18; TEMP 97.8; BMI 28.5
== END 2023-01-13 11:31 | disposition home or self-care (01) ==
LOC: JERFT 09:01
DX: R07.89 Other chest pain (principal); S22.42XA Multiple fractures of ribs, left side, initial encounter for closed fracture; X50.0XXA Overexertion from strenuous movement or load, initial encounter; Y93.F2 Activity, caregiving, lifting
CPT/HCPCS: 71046-TC-FY; 71101-TC-LT-FY; 99283-25

== ENCOUNTER 2023-10-22 18:20 | Emergency (ER) | payer OTHER ==
[2023-10-22 18:26] VITALS: BP 159/93; PULSE 77; RESP 18; TEMP 98; BMI 31.2
[2023-10-22 19:37] LABS: EOS % 0.1 % (0-4.5); HEMATOCRIT 43.6 % (35.4-49); HEMOGLOBIN 14.8 GM/dL (11.7-16.9); LYMPH % 8.1 % (8-40); MCH 30.5 pg (25.7-33.7); MCHC 33.9 g/dl (32.0-35.9); MEAN CELL VOLUME 90.1 fl (80-96); MEAN PLT VOLUME 9.3 fl (7.5-11.1); MONO % 3.5 % (3.8-10.2); NEUT % 88.3 % (42.8-82.8); PLATELET COUNT 344 10^3/uL (134-434); RBC 4.83 M/mm3 (4.00-5.60); RDW 13.3 % (11.9-15.9); WHITE BLOOD COUNT 14.6 K/mm3 (4.0-10.0)
[2023-10-22] MEDS ORDERED: ACETAMINOPHEN INJECTION 100 ML IVPB ONE (19:41)
[2023-10-22] MEDS ORDERED: PANTOPRAZOLE SODIUM 40 MG VIAL ONE (19:42)
[2023-10-22] MEDS ORDERED: ONDANSETRON 4 MG/2 ML VIAL ONE (19:42)
[2023-10-22] MEDS: SODIUM CHLORIDE 0.9% 1000 ML INFUS.BAG IV ONE (19:55)
[2023-10-22] MEDS: ACETAMINOPHEN 1000 MG/100 ML BAG IVPB ONE (19:55)
[2023-10-22] MEDS: ONDANSETRON 4 MG/2 ML VIAL IVPUSH ONE (19:56)
[2023-10-22] MEDS: PANTOPRAZOLE SODIUM 40 MG VIAL IVPUSH ONE (19:56)
[2023-10-22 20:04] LABS: CALCIUM 9.5 mg/dL (8.5-10.1)
[2023-10-22 20:05] LABS: ALBUMIN 4.2 g/dl (3.4-5.0)
[2023-10-22 20:08] LABS: CREATININE 0.8 mg/dL (0.55-1.3)
[2023-10-22 20:09] LABS: BILIRUBIN,TOTAL 0.4 mg/dL (0.2-1); TOT PROT 8.3 g/dl (6.4-8.2)
[2023-10-22] MEDS ORDERED: MECLIZINE HCL 25 MG TABLET (FP) ONE (22:29)
[2023-10-22] MEDS ORDERED: MECLIZINE HCL 25 MG TABLET (FP) PO ONE (22:36)
== END 2023-10-22 22:44 | disposition home or self-care (01) ==
LOC: JER 18:20
PROC: 3E033NZ Introduction of Analgesics, Hypnotics, Sedatives into Peripheral Vein, Percutaneous Approach (ICD-10-PCS; principal; 2023-10-22)
PROC: 3E033GC Introduction of Other Therapeutic Substance into Peripheral Vein, Percutaneous Approach (ICD-10-PCS; 2023-10-22)
PROC: 3E033GC Introduction of Other Therapeutic Substance into Peripheral Vein, Percutaneous Approach (ICD-10-PCS; 2023-10-22)
DX: R42 Dizziness and giddiness (principal); R05.9 Cough, unspecified; R09.81 Nasal congestion; R11.10 Vomiting, unspecified; Z20.822 Contact with and (suspected) exposure to COVID-19
CPT/HCPCS: 0241U-QW; 36415; 71046-TC-FY; 74177-TC; 80053; 83690; 85025; 99285-25; J0131; Q9967